=== PATIENT | female | born 1985 | race African-American/Black ===

== ENCOUNTER 2022-05-23 21:18 | Emergency (ER) | payer OTHER, SELFPAY ==
[2022-05-23 21:23] VITALS: BP 107/67; PULSE 67; RESP 16; TEMP 36.7; O2SAT 100
[2022-05-23 22:24] LABS: Influenza A QL RT-PCR Positive (Negative); Influenza B QL RT-PCR Negative (Negative); RSV RNA, RT-PCR Negative (Negative); SARS-CoV-2 RNA PCR Negative
--- NOTE | 2022-05-23 22:57 | ED.URI ---
HPI - URI/Sore Throat General Chief Complaint: Upper Respiratory Infection Stated Complaint: UPPER RESPIRATORY INFECTION Time Seen by Provider: 05/23/22 21:21 History of Present Illness HPI Narrative: 36-year-old female presents emergency room with her 3 children complains of a cough and headache for 1 day. Patient denies fever body aches. Has been taking Tylenol for symptoms. Denies sinus congestion, postnasal drip, runny nose. Review of Systems Review of Systems: CONSTITUTIONAL: Denies fever, chills, or sweats. EYES: Denies visual changes, redness, or discharge. ENT: Denies rhinorrhea, congestion, sore throat, or otalgia. CARDIOVASCULAR: Denies chest pain, palpitations, or edema. RESPIRATORY: Denies cough or dyspnea. GASTROINTESTINAL: Denies abdominal pain, nausea, vomiting, or diarrhea. GENITOURINARY: Denies dysuria or hematuria. SKIN: Denies rash or itching. MUSCULOSKELETAL: Denies back pain, joint pain, or myalgia. NEUROLOGIC: Denies headache, numbness, dizziness, or weakness. PSYCHIATRIC: Denies anxiety or depression. Exam Narrative: GENERAL: Well-appearing, well-nourished, no physical limitations, and in no acute distress. HEAD: Normocephalic, atraumatic. EYES: Conjunctivae normal, PERRLA and EOMI. ENT: External nose normal, Nares clear, no rhinorrhea or epistaxis. Mucous membranes moist. Oropharynx without tonsillar hypertrophy exudate or other lesions. External ears normal, bilateral TMs normal bilaterally NECK: Supple. No meningeal signs. No adenopathy or masses. No carotid bruits or JVD CHEST: Clear to auscultation. No respiratory distress. No wheezes rales or rhonchi. HEART: Regular rate and rhythm. No murmur heard. Normal peripheral pulses. EXTREMITIES: Normal range of motion. No edema. No clubbing or cyanosis SKIN: Warm, dry, no rash. No noted wounds NEURO: No focal deficits. Alert and oriented x3. MAEW. CN's II-XI intact bilaterally, normal gait PSYCH: Cooperative. Normal mood and affect. Course Vital Signs Vital signs: Vital Signs Temperature 36.7 C 05/23/22 21:23 Pulse Rate 67 05/23/22 21:23 Respiratory Rate 16 05/23/22 21:23 Blood Pressure 107/67 05/23/22 21:23 Pulse Oximetry 100 05/23/22 21:23 Oxygen Delivery Room Air 05/23/22 21:23 Temperature 36.7 C 05/23/22 21:23 Pulse Rate 67 05/23/22 21:23 Respiratory Rate 16 05/23/22 21:23 Blood Pressure 107/67 05/23/22 21:23 Pulse Oximetry 100 05/23/22 21:23 Oxygen Delivery Room Air 05/23/22 22:04 MDM - URI/Sore Throat Lab Data Labs: Lab Results 05/23/22 Range/Units 21:41 Influenza A (RT-PCR) Positive (Negative) Influenza B (RT-PCR) Negative (Negative) RSV (RT-PCR) Negative (Negative) SARS-CoV-2 RNA (RT-PCR) Negative Discharge Plan Discharge Clinical Impression: Influenza Patient Disposition: Home, Self-Care Condition: Stable Instructions: Antibiotic Form, Influenza (ED) Additional Instructions: Alternate Tylenol and ibuprofen as needed for headaches and body aches. Influenza is a self-limiting illness usually lasting 5 to 7 days. Follow-up/Referrals: PHYSICIAN NOT ON STAFF,NONSTAFF [Primary Care Provider] - Time of Disposition: 22:56
== END 2022-05-23 23:15 | disposition home or self-care (01) ==
PROVIDERS: Emergency Provider Nurse Practitioner Family
DX: J10.1 Influenza due to other identified influenza virus with other respiratory manifestations (principal); Z20.822 Contact with and (suspected) exposure to COVID-19
CPT/HCPCS: 87637; 99283

== ENCOUNTER 2022-06-02 15:42 | Emergency (ER) | payer OTHER, SELFPAY ==
[2022-06-02 16:37] VITALS: BP 117/84; PULSE 82; RESP 18; TEMP 36.8; O2SAT 100
--- NOTE | 2022-06-02 17:18 | ED.GENADULT ---
HPI - General Adult General Chief complaint: Unspecified Stated complaint: COVID TEST Time Seen by Provider: 06/02/22 16:49 History of Present Illness HPI narrative: 37-year-old female presents to the emergency room with her 3 children after returning from [employer] [facility] for evaluation of exposure to COVID on Friday. Patient states her 2 youngest children go to daycare and she was told on Friday afternoon they were exposed to COVID. Patient is asymptomatic. Related Data Allergies Allergy/AdvReac Type Severity Reaction Status Date / Time No Known Allergies Allergy Verified 06/02/22 17:11 Review of Systems Review of Systems: CONSTITUTIONAL: Denies fever, chills, or sweats. EYES: Denies visual changes, redness, or discharge. ENT: Denies rhinorrhea, congestion, sore throat, or otalgia. CARDIOVASCULAR: Denies chest pain, palpitations, or edema. RESPIRATORY: Denies cough or dyspnea. GASTROINTESTINAL: Denies abdominal pain, nausea, vomiting, or diarrhea. GENITOURINARY: Denies dysuria or hematuria. SKIN: Denies rash or itching. MUSCULOSKELETAL: Denies back pain, joint pain, or myalgia. NEUROLOGIC: Denies headache, numbness, dizziness, or weakness. PSYCHIATRIC: Denies anxiety or depression. Exam Narrative: GENERAL: Well-appearing, well-nourished, no physical limitations, and in no acute distress. HEAD: Normocephalic, atraumatic. EYES: Conjunctivae normal, PERRLA and EOMI. ENT: External nose normal, Nares clear, no rhinorrhea or epistaxis. Mucous membranes moist. Oropharynx without tonsillar hypertrophy exudate or other lesions. External ears normal, bilateral TMs normal bilaterally NECK: Supple. No adenopathy or masses. CHEST: Clear to auscultation. No respiratory distress. No wheezes rales or rhonchi. HEART: Regular rate and rhythm. No murmur heard. Normal peripheral pulses. ABDOMEN: Soft, nontender, nondistended, normal active bowel sounds.M EXTREMITIES: Normal range of motion. No edema. No clubbing or cyanosis SKIN: Warm, dry, no rash. No noted wounds NEURO: No focal deficits. Alert and oriented x3. MAEW. CN's II-XI intact bilaterally, normal gait PSYCH: Cooperative. Normal mood and affect. Course Vital Signs Vital signs: Vital Signs Temperature 36.8 C 06/02/22 16:37 Pulse Rate 82 06/02/22 16:37 Respiratory Rate 18 06/02/22 16:37 Blood Pressure 117/84 06/02/22 16:37 Pulse Oximetry 100 06/02/22 16:37 Oxygen Delivery Room Air 06/02/22 16:37 Temperature 36.8 C 06/02/22 16:37 Pulse Rate 82 06/02/22 16:37 Respiratory Rate 18 06/02/22 16:37 Blood Pressure 117/84 06/02/22 16:37 Pulse Oximetry 100 06/02/22 16:37 Oxygen Delivery Room Air 06/02/22 16:37 Medical Decision Making Vital Signs Vital Signs: Vital Signs Temperature 36.8 C 06/02/22 16:37 Pulse Rate 82 06/02/22 16:37 Respiratory Rate 18 06/02/22 16:37 Blood Pressure 117/84 06/02/22 16:37 Pulse Oximetry 100 06/02/22 16:37 Oxygen Delivery Room Air 06/02/22 16:37 Temperature 36.8 C 06/02/22 16:37 Pulse Rate 82 06/02/22 16:37 Respiratory Rate 18 06/02/22 16:37 Blood Pressure 117/84 06/02/22 16:37 Pulse Oximetry 100 06/02/22 16:37 Oxygen Delivery Room Air 06/02/22 16:37 Lab Data Labs: Lab Results 06/02/22 Range/Units 16:31 Influenza A (RT-PCR) Pending Influenza B (RT-PCR) Pending RSV (RT-PCR) Pending SARS-CoV-2 RNA (RT-PCR) Pending Discharge Plan Discharge Clinical Impression: Close exposure to COVID-19 virus Patient Disposition: Home, Self-Care Condition: Stable Instructions: Antibiotic Form Follow-up/Referrals: PHYSICIAN NOT ON STAFF,NONSTAFF [Primary Care Provider] - Time of Disposition: 17:20
[2022-06-02 17:24] LABS: Influenza A QL RT-PCR Negative (Negative); Influenza B QL RT-PCR Negative (Negative); RSV RNA, RT-PCR Negative (Negative); SARS-CoV-2 RNA PCR Negative
[2022-06-02 17:55] VITALS: PULSE 88; RESP 15; O2SAT 99
== END 2022-06-02 17:56 | disposition home or self-care (01) ==
LOC: ANHED 17:22
PROVIDERS: Emergency Medicine; Emergency Provider Nurse Practitioner Family
DX: Z20.822 Contact with and (suspected) exposure to COVID-19 (principal)
CPT/HCPCS: 87637; 99283